=== PATIENT | female | born 1975 | race Caucasian/White ===

== ENCOUNTER 2017-03-19 12:06 | Emergency (ER) | payer BC ==
[~2017-03-19] VITALS: Ht 170.2 cm; Wt 109.9 kg
[~2017-03-19 12:06] MED LIST: CIPRO500 MG PO; COREG3.125 M1 PO; EFFEXOR XR150 MG PO; EFFEXOR25 MG PO; Ecotrin PO; Effexor XR PO; FLAGYL500 MG PO; IBUPROFEN800 MG PO; NORCO 5/3251 TABLET PO; PERCOCET 5/31 TABLET PO; PREDNISONE20 MG PO; ULTRAM50 MG PO; XANAX0.5 MG; Xanax PO; ZITHROMAX250 MG PO; ZOFRAN4 MG PO
[2017-03-19] MEDS ORDERED: NAPROSYN500 MG PO (13:25)
[2017-03-19] MEDS ORDERED: ULTRAM50 MG PO (13:25)
[2017-03-19 13:44] VITALS: BP 166/97
== END 2017-03-19 13:45 | disposition home or self-care (01) ==
LOC: EME 12:06
DX: S90.32XA Contusion of left foot, initial encounter (principal); W20.8XXA Other cause of strike by thrown, projected or falling object, initial encounter
CPT/HCPCS: 73630; 99281; 99284